=== PATIENT | female | born 1945 | race Caucasian/White ===

== ENCOUNTER 2024-10-28 18:48 | Outpatient (CLI) | payer MEDICARE, BC, SELFPAY | END 2024-10-28 18:49 | disposition home or self-care (01) | LOC: AMB 10-29 13:33 | PROVIDERS: PCP Family Medicine; Visit Provider Emergency Medicine Emergency Medical Services | DX: R53.1 Weakness (principal); R10.9 Unspecified abdominal pain | CPT/HCPCS: A0425; A0428 ==